=== PATIENT | male | born 1985 | race Hispanic/Latino ===

== ENCOUNTER 2016-08-28 17:07 | Emergency (ER) | payer OTHER ==
[2016-08-28 17:12] VITALS: BP 131/73; PULSE 77; RESP 18; TEMP 98.2; O2SAT 100; BMI 23.1
[2016-08-28] MEDS ORDERED: Amoxicillin-Clav 875-125 mg Tab PO STA (17:22)
[2016-08-28] MEDS ORDERED: TDAP Vaccine 0.5 mL Syr IM ONE (17:22)
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
== END 2016-08-28 17:44 | disposition home or self-care (01) ==
LOC: ED 17:07
DX: S31.159A Open bite of abdominal wall, unspecified quadrant without penetration into peritoneal cavity, initial encounter (principal); W54.0XXA Bitten by dog, initial encounter; Y93.55 Activity, bike riding; Y92.410 Unspecified street and highway as the place of occurrence of the external cause; Z23 Encounter for immunization